=== PATIENT | female | born 1980 | race Caucasian/White ===

== ENCOUNTER 2016-05-08 09:34 | Day surgery (SDC) | payer MEDICAID ==
[2016-05-01 16:31] LABS: ADD SCAN DIFF NO
[2016-05-01 16:52] LABS: ADD UMIC YES; URINE BILIRUBIN (Dip) NEGATIVE (NEGATIVE); URINE BLOOD (Dip) TRACE (NEGATIVE); URINE COLOR LT. YELLOW (YELLOW); URINE GLUCOSE (Dip) NEGATIVE (NEGATIVE); URINE KETONES (Dip) NEGATIVE (NEGATIVE); URINE LEUKOCYTE ESTERASE (Dip) NEGATIVE (NEGATIVE); URINE NITRITE (Dip) NEGATIVE (NEGATIVE); URINE TOTAL PROTEIN (Dip) NEGATIVE (NEGATIVE); URINE UROBILINOGEN (Dip) 0.2 E.U./dL (0.1-1.0)
[2016-05-01 17:04] LABS: BASOPHILS % 0.5 % (0.0-2.0); EOSINOPHILS # 0.1 10^3/ul (0.0-0.5); EOSINOPHILS % 1.6 % (0.0-7.0); HEMATOCRIT 36.2 % (37.0-47.0); HEMOGLOBIN 12.6 g/dl (12.0-16.0); LYMPHOCYTES # 2.1 10^3/ul (0.8-2.9); LYMPHOCYTES % 25.2 % (15.0-51.0); MEAN CORPUSCULAR HEMOGLOBIN 30.7 pg (29.0-33.0); MEAN CORPUSCULAR HGB CONC 34.8 g/dl (32.0-37.0); MEAN CORPUSCULAR VOLUME 88.3 fl (82.0-101.0); MEAN PLATELET VOLUME 10.9 fl (7.4-10.4); MONOCYTE # 0.8 10^3/ul (0.3-0.9); MONOCYTES % 9.6 % (0.0-11.0); NEUTROPHIL # 5.3 10^3/ul (1.6-7.5); NEUTROPHILS % 62.7 % (39.0-77.0); PLATELET COUNT 227 10^3/UL (140-415); RED CELL DISTRIBUTION WIDTH 12.3 % (11.5-14.5); SQUAMOUS EPITHELIAL CELL,UR MODERATE; WHITE BLOOD COUNT 8.4 10^3/ul (4.8-10.8)
[2016-05-01 17:05] LABS: BACTERIA,URINE FEW; URINE RBCS 0-2 /HPF (0)
[2016-05-01 17:18] LABS: ALBUMIN 4.2 g/dl (3.3-4.9)
[2016-05-01 17:21] LABS: ALBUMIN/GLOBULIN RATIO 1.23; TOTAL PROTEIN 7.6 g/dl (6.1-8.1)
[2016-05-01 17:22] LABS: CALCIUM 9.8 mg/dl (8.4-10.2); CREATININE 0.63 mg/dl (0.44-1.00); POTASSIUM 4.1 mmol/L (3.5-5.1)
[2016-05-01 18:05] LABS: INR 0.93; PROTIME 12.5 Sec (12.2-14.2)
[2016-05-01 18:06] LABS: PARTIAL THROMBOPLASTIN TIME 25.1 Sec (25.0-35.0)
[~2016-05-08] VITALS: Ht 157.5 cm; Wt 73.0 kg
[2016-05-08] VITALS (28 sets, daily range): BP systolic 113–159; BP diastolic 58–85; PULSE 60–97; RESP 17–22; Ht 157.5 cm; Wt 73.0 kg
[~2016-05-08 09:34] MED LIST: CEFAZOLIN 1 GM INJ ONE; PREN-39 PO
[2016-05-08] MEDS ORDERED: BUPIVACAINE 0.25%/EPI (SDV) 30 ML INJ ONE (12:00)
[2016-05-08] MEDS ORDERED: PROPOFOL 20 ML ONE (12:41)
[2016-05-08] MEDS ORDERED: NEOSTIGMINE 3 MG/3 ML SYRINGE ONE ×2 (12:41→14:04)
[2016-05-08] MEDS ORDERED: GLYCOPYRROLATE 0.4 MG INJ ONE ×2 (12:41→14:04)
[2016-05-08] MEDS ORDERED: SUCCINYLCHOLINE CHLORIDE 100 MG/5 ML SYG IV ONE (12:41)
[2016-05-08] MEDS ORDERED: LIDOCAINE 2% (SDV) 5 ML INJ ONE (12:41)
[2016-05-08] MEDS ORDERED: ROCURONIUM 50 MG INJ ONE (12:41)
[2016-05-08] MEDS ORDERED: MEPERIDINE 100 MG INJ ONE (12:42)
[2016-05-08] MEDS ORDERED: METOCLOPRAMIDE 10 MG INJ ONE (12:46)
[2016-05-08] MEDS ORDERED: ONDANSETRON 4 MG INJ ONE (12:46)
--- NOTE | 2016-05-08 12:46 | HP ---
Date/Time of Note Date/Time of Note DATE: 05/08/16 TIME: 12:40 Assessment/Plan VTE Prophylaxis VTE Prophylaxis Intervention: anti-embolic stocking Lines/Catheters IV Catheter Type (from Nrsg): Peripheral IV HPI/ROS Admit Date/Time Admit Date/Time May 08, 2016 Hx of Present Illness 35 years old female 4 para 3 SAB 1 with last menstrual period May 07, 2006 admitted to [facility] we the request for volunteer sterilization, bilateral tubal ligation mini laparotomy the failure rate of tubal ligation increased risk of ectopic future failure to conceive has been discussed with the patient as well as the complication of the surgery including wound hematoma infection has been explained to the and she is willing to go ahead with the procedure ROS Constitutional: improved, no complaints PMH/Family/Social Social History Smoking Status: Never smoker Exam/Review of Systems Vital Signs Vitals Vital Signs Date Time Temp Pulse Resp B/P Pulse Ox O2 Delivery O2 Flow Rate FiO2 05/08/16 10:43 98.3 83 18 113/78 99 Room Air NICOLA FRANCO MD May 08, 2016 12:46
[2016-05-08] MEDS ORDERED: CEFAZOLIN 1 GM INJ ONE (13:11)
--- NOTE | 2016-05-08 14:09 | QN ---
Documentation Comment Discontinue Carlson in the recovery room before transferring patient to same-day surgery, notify MD before discharge patient needs prescription for pain medication at home NICOLA FRANCO MD May 08, 2016 14:08
[2016-05-08] MEDS ORDERED: LABETALOL HCL 20MG INJ IV PRN (14:30)
[2016-05-08] MEDS ORDERED: morphine (1 MG/ML) 10ML SYRINGE IV PRN ×2 (14:30)
[2016-05-08] MEDS ORDERED: ONDANSETRON 4 MG INJ IV PRN (14:30)
[2016-05-08] MEDS ORDERED: hydrALAzine 20 MG INJ IV PRN (14:30)
[2016-05-08] MEDS ORDERED: MEPERIDINE 25 MG INJ IV PRN (14:30)
[2016-05-08] MEDS ORDERED: DIPHENHYDRAMINE 50 MG INJ IV PRN (14:30)
[2016-05-08] MEDS ORDERED: FENTAnyl 50 MCG/ML VIAL IV PRN ×2 (14:30)
[2016-05-08] MEDS ORDERED: EPHEDrine SULFATE 50 MG/5 ML SYG IV PRN (14:30)
[2016-05-08] MEDS ORDERED: METOCLOPRAMIDE 10 MG INJ IV PRN (14:30)
[2016-05-08] MEDS ORDERED: HYDROmorphONE (0.2 MG/ML) 10ML SYG IV PRN ×2 (14:30)
[2016-05-08] MEDS ORDERED: MIDAZOLAM 1 MG/ML 2 ML INJ IV PRN (14:30)
--- NOTE | 2016-05-08 14:40 | OPR ---
DATE OF OPERATION: 05/08/2016 PREOPERATIVE DIAGNOSES: Requests for bilateral tubal ligation. POSTOPERATIVE DIAGNOSES: Requests for bilateral tubal ligation. OPERATION PERFORMED: Minilaparotomy, bilateral tubal ligation (bilateral fimbriectomy). SURGEON: Nicola Franco MD ANESTHESIA: General. ANESTHESIOLOGIST: Dr. Sawant DETAILS OF THE PROCEDURE: Under satisfactory general anesthesia, the patient was prepped and draped and placed in supine position. A small Pfannenstiel incision approximately 2 inches was made. Inc ision carried through the subcutaneous tissue. Bleeders brought under control with electrocautery. Fascia incised to the length of the incision. Rectus muscle divided in midline. Peritoneum expose d, entered through a transverse incision. Exploration of abdomen. Normal uterus with normal-appear ing tubes and ovaries. Right fallopian tube was identified, grasped by a O[place]man. Suture material used with #0 plain catgut which was reinforced with the same size suture material. Fimbriectomy was performed, and cut end of the cut tube was cauterized. Specimen submitted for the pathology. The same procedure performed for the opposite side. Peritoneal cavity irrigated with warm saline. Spon ge, needle and instrument reported to be correct. Abdominal peritoneum closed with 2-0 chromic catg ut continuously. Rectus muscle approximated with 2 interrupted 2-0 chromic catgut. Fascia closed w ith 0 PDS in a continuous fashion. Subcutaneous tissue approximated with interrupted 2-0 chromic ca tgut. The skin closed with subcuticular 3-0. At the end 10 mL of Marcaine was injected under the i ncision. Estimated blood loss less than 5 to 10 mL. Urine bag contained 200 mL of clear urine. Ladarius vernon tolerated procedure well, transferred to recovery room in a good condition. Dictated By: NICOLA FRANCO MD HF/NTS Conf#: [id number] DID#: [id number]
[2016-05-08] MEDS ORDERED: KETOROLAC 30 MG INJ IV STA (16:00)
[2016-05-08] MEDS ORDERED: OXYCODONE/ACETAMINOPHEN (5/325) TAB PO PRN (19:00)
[2016-05-08] MEDS: IBUPROFEN 600 MG TAB PO SCH (23:24)
[2016-05-09] MEDS: IBUPROFEN 600 MG TAB PO SCH (05:48)
[2016-05-09 07:33] VITALS: BP 117/59; RESP 18
--- NOTE | 2016-05-25 13:39 | DS ---
Date/Time of Note Date/Time of Note DATE: 05/25/16 TIME: 13:34 Discharge Summary Admission/Discharge Info Admit Date/Time Admit May 08, 2016 at 9:34 AM Discharge Date/Time Discharge date May 09, 2016 at 12:00 Final Diagnosis Bilateral tubal ligation Patient Condition: Good Hx of Present Illness 35 years old female 4 para 3 SAB 1 with last menstrual period May 07, 2006 admitted to [facility] we the request for volunteer sterilization, bilateral tubal ligation mini laparotomy the failure rate of tubal ligation increased risk of ectopic future failure to conceive has been discussed with the patient as well as the complication of the surgery including wound hematoma infection has been explained to the and she is willing to go ahead with the procedure Hospital Course Uneventful Home Meds No Active Prescriptions or Reported Meds Follow-up Plan Recommended follow-up appointment to the office in 1 week, post surgery recommendation , instructions given advised to make appointment in 1 week NICOLA FRANCO MD May 25, 2016 13:39
== END 2016-05-09 12:00 | disposition home or self-care (01) ==
LOC: SDS 09:34 → MS1 19:25 → UNDOADMIN 19:25 → SDS 19:25 → UNDODISIN 05-09 12:00
PROVIDERS: ATTEND Obstetrics & Gynecology
DX: Z30.2 Encounter for sterilization (principal); E66.9 Obesity, unspecified; Z68.29 Body mass index [BMI] 29.0-29.9, adult
CPT/HCPCS: 58600; 80053; 81001; 84703; 85025; 85610; 85730; 86850; 86900; 86901; 88302; J0330; J0690; J1170; J1885; J2175; J2405; J2710; J2765; Z7512; Z7610; 81003; A4310